=== PATIENT | female | born 1940 | race Caucasian/White ===

== ENCOUNTER → 2018-08-03 | Outpatient (CLI) | payer MEDICARE, MEDICAID | LOC: MC.RAD 07:59 | DX: Z12.31 Encounter for screening mammogram for malignant neoplasm of breast (principal); N64.89 Other specified disorders of breast ==

== ENCOUNTER → 2018-08-14 | Outpatient (CLI) | payer MEDICARE, MEDICAID | LOC: MC.RAD 14:00 | DX: N63.20 Unspecified lump in the left breast, unspecified quadrant (principal); N64.89 Other specified disorders of breast | CPT/HCPCS: G0279 ==

== ENCOUNTER 2018-12-14 11:36 | Emergency (ER) | payer MEDICARE, MEDICAID ==
[~2018-12-14] VITALS: Ht 152.4 cm; Wt 73.6 kg
[2018-12-14 12:13] LABS: BASO # 0.1 (0.0-0.2); BASO % 0.5 % (0.0-2.0); EOS # 0.1 (0.0-0.7); EOS % 1.2 % (0-4.0); GRAN # 6.1 (1.4-6.5); GRAN % 60.2 % (42.2-75.2); HEMATOCRIT 42.4 % (37.0-47.0); HEMOGLOBIN 13.8 g/dl (12.5-16.0); LYMPH # 3.1 (1.2-3.4); LYMPH % 30.9 % (20.0-51.0); MEAN CELL VOLUME 90 fl (80.0-100.0); MEAN CORPUSCULAR HEMOGLOBIN 29 pg (27.0-31.0); MEAN CORPUSCULAR HGB CONC 33 g/dl (33.0-37.0); MEAN PLATELET VOLUME 8.8 fl (7.4-10.4); MONO # 0.7 (0.1-0.6); MONO % 6.9 % (1.7-9.3); PLATELET COUNT 372 K/mm3 (130-400); RED BLOOD COUNT 4.72 M/mm3 (4.10-5.30)
[2018-12-14 12:15] LABS: ALANINE AMINOTRANSFERASE 39 U/L (9-52); ALBUMIN 4.5 gm/dL (3.5-5.0); ALKALINE PHOSPHATASE 70 U/L (50-136); ANION GAP 11 mmol/L (7-16); AST,SGOT 44 U/L (15-37); BILIRUBIN,TOTAL 0.6 mg/dL (0.0-1.0); BLOOD UREA NITROGEN 14 mg/dL (7-17); CALCIUM 9.4 mg/dL (8.4-10.2); CARBON DIOXIDE 26 mmol/L (22-30); CHLORIDE 99 mmol/L (98-107); CREATININE, serum 0.59 mg/dL (0.52-1.25); GLUCOSE 102 mg/dL (74-106); POTASSIUM 3.9 mmol/L (3.4-5.0); SODIUM 136 mmol/L (137-145); TOTAL PROTEIN 8.9 gm/dL (6.4-8.2)
[2018-12-14] MEDS ORDERED: ASPIRIN 81M81 MG/TA2 PO (12:16)
[2018-12-14] MEDS ORDERED: ZYRTEC 10MG10 MG PO (12:16)
[2018-12-14] MEDS ORDERED: FOSAMAX 70MG TA70 MG PO (12:16)
[2018-12-14] MEDS ORDERED: CALCIUM CARBON650 M2 PO (12:16)
[2018-12-14] MEDS ORDERED: VOLTAREN GEL 1%1 TU TP (12:17)
[2018-12-14] MEDS ORDERED: FISH OIL 1000MG1 CAP PO (12:18)
[2018-12-14] MEDS ORDERED: NATURAL MAGNES200 MG PO (12:18)
[2018-12-14] MEDS ORDERED: TYLENOL 8 HR PO (12:19)
[2018-12-14] MEDS ORDERED: NASONEX SPRAY17 GM NS (12:19)
[2018-12-14] MEDS ORDERED: VTAMINC250TA PO (12:20)
[2018-12-14 12:24] LABS: PROTHROMBIN TIME 11.3 SECONDS (9.7-12.8)
[2018-12-14 12:27] LABS: PARTIAL THROMBOPLASTIN TIME 31.5 SECONDS (26.0-37.0)
[2018-12-14 12:34] LABS: TROPONIN-I < 0.012 ng/mL (0.000-0.035)
[2018-12-14] MEDS ORDERED: BONINE25 MG PO (13:13)
[2018-12-14 13:30] VITALS: BP 159/81; PULSE 70
== END 2018-12-14 13:35 | disposition home or self-care (01) ==
LOC: COL.ER 11:36
PROVIDERS: Family Medicine
DX: I48.91 Unspecified atrial fibrillation (principal); H83.01 Labyrinthitis, right ear; Z79.82 Long term (current) use of aspirin